=== PATIENT | female | born 1965 | race Caucasian/White ===

== ENCOUNTER → 2019-06-24 14:30 | Outpatient (BNVA) | payer BC, SELFPAY | PROVIDERS: Family Provider Internal Medicine; Visit Provider Nurse Practitioner Women's Health | DX: Z01.89 Encounter for other specified special examinations (principal) ==

== ENCOUNTER 2019-11-05 08:34 | Outpatient (CLI) | payer BC, SELFPAY ==
--- NOTE | 2019-11-05 08:38 | MM_ITS ---
WS: [id number] BILATERAL DIGITAL SCREENING MAMMOGRAPHY WITH CAD CLINICAL INFORMATION: SCREENING HISTORY: Screening mammogram. No current complaints. COMPARISON: August 07, 2018, June 26, 2017 TECHNIQUE: Bilateral CC and MLO views. FINDINGS: Scattered fibroglandular densities bilaterally. Stable lobulated mass anterior left breast previously demonstrated to represent large cysts. Today this measures 6.3 x 4.8 cm. No new suspicious focal mas s, asymmetry, calcifications, or architectural distortion. No evidence of malignancy. MM/[place] [id number] IMPRESSION: BI-RADS: 2-Benign FOLLOW UP: 1 Year Follow-up Recommend return to annual screening mammography.
== END 2019-11-05 08:35 | disposition home or self-care (01) ==
LOC: RADSHAW 08:37
PROVIDERS: PCP Internal Medicine; Visit Provider Nurse Practitioner Women's Health
DX: Z12.31 Encounter for screening mammogram for malignant neoplasm of breast (principal)
CPT/HCPCS: 77067

== ENCOUNTER → 2020-09-16 13:36 | Outpatient (BNVA) | payer BC, SELFPAY | PROVIDERS: PCP Internal Medicine; Visit Provider Obstetrics & Gynecology | DX: N95.0 Postmenopausal bleeding (principal) | CPT/HCPCS: 83001; 84146; 84443; 84702; 85025 ==

== ENCOUNTER → 2020-09-20 14:47 | Outpatient (BNVA) | payer BC, SELFPAY | PROVIDERS: PCP Internal Medicine; Visit Provider Obstetrics & Gynecology | DX: N95.0 Postmenopausal bleeding (principal) | CPT/HCPCS: 76830 ==

== ENCOUNTER 2020-11-11 09:06 | Outpatient (CLI) | payer BC, SELFPAY ==
--- NOTE | 2020-11-11 09:10 | MM_ITS ---
WS: [id number] BILATERAL DIGITAL SCREENING MAMMOGRAPHY WITH CAD CLINICAL INFORMATION: SCREENING HISTORY: Screening mammogram. No current complaints. COMPARISON: November 05, 2019 TECHNIQUE: Bilateral CC and MLO views. FINDINGS: Scattered fibroglandular densities bilaterally. Vascular calcification. Stable lobulated mass anterio r left breast previously demonstrated to represent large cysts. This is not significantly changed in appearance. No suspicious focal mass, asymmetry, calcifications, or architectural distortion. No evid ence of malignancy. MM/[place] [id number] IMPRESSION: BI-RADS: 2-Benign FOLLOW UP: 1 Year Follow-up Recommend return to annual screening mammography..
== END 2020-11-11 09:07 | disposition home or self-care (01) ==
LOC: RADSHAW 09:09
PROVIDERS: PCP Internal Medicine; Visit Provider Internal Medicine
DX: Z12.31 Encounter for screening mammogram for malignant neoplasm of breast (principal)
CPT/HCPCS: 77067

== ENCOUNTER 2021-02-21 14:09 | Outpatient (CLI) | payer BC, SELFPAY ==
--- NOTE | 2021-02-21 14:30 | MM_ITS ---
WS: [id number] DIAGNOSTIC LEFT DIGITAL MAMMOGRAM WITH CAD LEFT breast ultrasound, limited HISTORY: N63.20 - Unspecified lump in the left breast, unspecified... COMPARISON: 11/11/2020, 11/05/2019 and 08/07/2018 Technique: CC, MLO and ML views. Spot compression CC. Breast composition: There are scattered areas of fibroglandular density. High density well-circumscr ibed mass posterior to the LEFT nipple measures 5.0 x 4.4 cm. This has decreased in size since prior studies. No adjacent calcifications or nipple retraction. LEFT breast ultrasound, limited. Ultrasound is directed to the palpable abnormality. There is a large cyst posterior to the nipple thang r 5:00 measuring 4.4 x 2.3 x 4.0 cm. There is good through transmission. Low level echoes throughout. This mass has been previously described. No solid mass. MM/[place] [id number] IMPRESSION: BI-RADS: 2-Benign FOLLOW UP: 1 Year Follow-up
--- NOTE | 2021-02-21 15:00 | US_ITS ---
WS: [id number] DIAGNOSTIC LEFT DIGITAL MAMMOGRAM WITH CAD LEFT breast ultrasound, limited HISTORY: N63.20 - Unspecified lump in the left breast, unspecified... COMPARISON: 11/11/2020, 11/05/2019 and 08/07/2018 Technique: CC, MLO and ML views. Spot compression CC. Breast composition: There are scattered areas of fibroglandular density. High density well-circumscr ibed mass posterior to the LEFT nipple measures 5.0 x 4.4 cm. This has decreased in size since prior studies. No adjacent calcifications or nipple retraction. LEFT breast ultrasound, limited. Ultrasound is directed to the palpable abnormality. There is a large cyst posterior to the nipple thang r 5:00 measuring 4.4 x 2.3 x 4.0 cm. There is good through transmission. Low level echoes throughout. This mass has been previously described. No solid mass. US/US breast LT limited* [id number] IMPRESSION: BI-RADS: 2-Benign FOLLOW UP: 1 Year Follow-up
== END 2021-02-21 14:10 | disposition home or self-care (01) ==
LOC: RADSHAW 14:14
PROVIDERS: PCP Internal Medicine; Visit Provider Obstetrics & Gynecology
DX: N63.23 Unspecified lump in the left breast, lower outer quadrant (principal)
CPT/HCPCS: 76642; 77065

== ENCOUNTER → 2021-03-17 13:50 | Outpatient (BNVA) | payer BC, SELFPAY | PROVIDERS: PCP Internal Medicine; Visit Provider Surgery | DX: N63.0 Unspecified lump in unspecified breast (principal) | CPT/HCPCS: 88112; 88173; 88305 ==

== ENCOUNTER 2022-04-02 08:16 | Outpatient (CLI) | payer BC, SELFPAY ==
--- NOTE | 2022-04-02 08:24 | MM_ITS ---
WS: [id number] Exam: [place] [id number] Date/Time of Exam: 04/02/2022 8:55 AM Reason For Exam: SCREENING VIEWS: MLO and CC views both breasts. 3D digital tomosynthesis is also included in this exam. Comparison made with prior exam of 05/18/2016, 06/26/2017, 08/07/2018, 11/05/2019 and 11/11/2020. Findings: There was no sign of mass, architectural distortion or suspicious calcification in either breast. Sc attered fibroglandular densities MM/[place] [id number] Impression: BI-RADS: 2-Benign FOLLOW-UP: 1 Year Follow-up This mammogram was also analyzed by the Computer Aided Detection System [employer] Member.
== END 2022-04-02 08:17 | disposition home or self-care (01) ==
LOC: RAD 08:18
PROVIDERS: PCP Internal Medicine; Visit Provider Internal Medicine
DX: Z12.31 Encounter for screening mammogram for malignant neoplasm of breast (principal)
CPT/HCPCS: 77063; 77067

== ENCOUNTER → 2022-07-06 16:30 | Outpatient (BNVA) | payer BC, SELFPAY | PROVIDERS: PCP Internal Medicine; Visit Provider Nurse Practitioner Women's Health | DX: Z12.4 Encounter for screening for malignant neoplasm of cervix (principal) | CPT/HCPCS: 87624 ==

== ENCOUNTER 2023-05-17 09:47 | Outpatient (CLI) | payer BC, SELFPAY ==
--- NOTE | 2023-05-17 09:51 | MM_ITS ---
WS: [id number] BILATERAL 3D TOMOSYNTHESIS DIGITAL SCREENING MAMMOGRAPHY WITH CAD CLINICAL INFORMATION: SCREEN HISTORY: Screening mammogram. No current complaints. COMPARISON: 2021 TECHNIQUE: Bilateral CC and MLO views. FINDINGS: Scattered fibroglandular densities bilaterally. No suspicious focal mass, asymmetry, calcifications, or architectural distortion. No evidence of malignancy. Vascular calcification. Few incidental puncta te calcifications. IMPRESSION: MM/[place] [id number] BI-RADS: 2-Benign FOLLOW UP: 1 Year Follow-up Recommend return to annual screening mammography.
== END 2023-05-17 09:48 | disposition home or self-care (01) ==
LOC: RAD 09:47
PROVIDERS: PCP Internal Medicine; Visit Provider Nurse Practitioner Women's Health
DX: Z12.31 Encounter for screening mammogram for malignant neoplasm of breast (principal)
CPT/HCPCS: 77063; 77067

== ENCOUNTER → 2023-09-12 08:30 | Outpatient (BNVA) | payer BC, SELFPAY | PROVIDERS: PCP Internal Medicine; Visit Provider Nurse Practitioner Women's Health | DX: N76.2 Acute vulvitis (principal) | CPT/HCPCS: 88305 ==

== ENCOUNTER 2024-05-19 11:48 | Outpatient (CLI) | payer BC, SELFPAY ==
--- NOTE | 2024-05-19 11:55 | MM_ITS ---
WS: [id number] Bilateral screening 3D tomosynthesis digital mammogram, 05/19/2024 11:56 AM Clinical Data: SCREENING Comparison: 05/17/2023, 04/02/2022, 02/21/2021, 11/11/2020, 11/05/2019, 08/07/2018, 06/26/2017, 05/18/2016, 12/30/2015, 05/16/2015, 04/14/2014 04/13/2013, 04/09/2012, 03/19/2012, 01/17/2011, 01/03/2011, 01/25/2010 , 01/09/2010, 12/21/2008. Findings: No spiculated masses or clustered calcifications are seen. There are no secondary signs of carcinoma . MM/MM scr BI tomosynthesis [id number] Impression: Negative bilateral mammogram unchanged. Recommend annual screening mammograms. BIRADS: 1 - Negative. FOLLOW UP: 1 Year Follow-up DENSITY: There are scattered areas of fibroglandular density. The CAD invoice checker was used
== END 2024-05-19 11:49 | disposition home or self-care (01) ==
LOC: RAD 11:49
PROVIDERS: PCP Internal Medicine; Visit Provider Family Medicine
DX: Z12.31 Encounter for screening mammogram for malignant neoplasm of breast (principal)
CPT/HCPCS: 77063; 77067

== ENCOUNTER 2024-10-05 13:15 | Outpatient (CLI) | payer BC, SELFPAY ==
--- NOTE | 2024-10-05 13:30 | XR_ITS ---
WS: [id number] DEXA (DUAL ENERGY X-RAY ABSORPTIOMETRY) Bone mineral density was performed using a [employer] machine. HISTORY: Z78.0 - Asymptomatic menopausal state COMPARISON: None available. Lumbar spine BMD (L1-L4): 0.933 g/cm2 T score: -2.1 Z score: -1.0 Total hip BMD: Left: 0.894 g/cm2. T score: -0.9 Z score: -0.1 Right: 0.859 g/cm2. T score: -1.2 Z score: -0.4 10 year probability of a major osteoporotic fracture is 7.3%. XR/XR DEXA axial skeleton* [id number] IMPRESSION: OSTEOPENIA based upon the WHO classification for females.
== END 2024-10-05 13:16 | disposition home or self-care (01) ==
PROVIDERS: PCP Family Medicine; Visit Provider Nurse Practitioner Women's Health
DX: Z78.0 Asymptomatic menopausal state (principal); Z13.820 Encounter for screening for osteoporosis; M85.80 Other specified disorders of bone density and structure, unspecified site
CPT/HCPCS: 77080